=== PATIENT | male | born 1935 | race Caucasian/White ===

== ENCOUNTER 2017-11-11 12:15 | Emergency (ER) | payer OTHER, MEDICARE ==
[~2017-11-11] VITALS: Ht 177.8 cm; Wt 79.4 kg
[2017-11-11] MEDS ORDERED: AMLODIPINE BESYL5 M1 PO (13:17)
[2017-11-11] MEDS ORDERED: SOTALOL80 M1 PO (13:17)
[2017-11-11] MEDS ORDERED: PRADAXA150 M2 PO (13:17)
[2017-11-11] MEDS ORDERED: ATORVASTATIN CA20 M1 PO (13:17)
--- NOTE | 2017-11-11 13:46 | ED HAND/WRIST INJURY COMPLAINT ---
History of Present Illness General Chief Complaint: Hand or Wrist Injury Stated Complaint: RT HAND INFECTION Source: patient Exam Limitations: no limitations Vital Signs & Intake/Output Vital Signs & Intake/Output Vital Signs Date Time Temp Pulse Resp B/P B/P Pulse O2 O2 Flow FiO2 Mean Ox Delivery Rate 11/11 1505 97.0 70 15 140/71 99 Room Air Room Air 11/11 1344 96 Room Air 11/11 1221 96.8 76 18 144/78 98 Room Air Allergies Coded Allergies: No Known Drug Allergies (Intermediate, NONE 11/11/17) Reconcile Medications Amlodipine Besylate 5 MG TABLET 1 TAB PO DAILY BP (Reported) Atorvastatin Calcium 20 MG TABLET 1 TAB PO DAILY HEART (Reported) Cephalexin (Keflex) 500 MG CAPSULE 1 CAP PO TID CELLULITIS Dabigatran Etexilate Mesylat (Pradaxa) 150 MG CAPSULE 1 TAB PO BID BLOOD THINNER (Reported) Sotalol HCl (Sotalol) 80 MG TABLET 1 TAB PO BID HEART (Reported) Triage Note: C/O PAIN IN R WRIST AND TOP OF HAND X 3-4 DAYS, DENIES INJURY OR FALL. Triage Nurses Notes Reviewed? yes Duration: day(s): (3-4), constant, continues in ED Timing: single episode today Injury Environment: home Severity: mild, moderate Severity Numbers: 7 Pain/Injury Location: Right: Wrist. Method of Injury: unknown No Modifying Factors: none HPI: 82-year-old male past medical history of hypertension, atrial fibrillation presents for evaluation of pain in his right wrist. Patient states symptoms started 3 or 4 days ago and have been persistent. He denies any trauma or triggering event. The pain is located diffusely in the wrist and is worse with movement. He states that the pain is very mild when he is not moving and that he gets significant worse with flexion and extension and deviation. He states that several days prior to the onset of the pain he noticed a small scratch over the knuckles. He states that he is prone to infections and he thinks it may be the cause of the pain. No numbness tingling fever or spreading redness swelling or discharge. He is not taking any medicine for this. No other joint swelling or pain. (Jamie Thornton) Past History Travel History Traveled to [place] past 21 day No Medical History Any Pertinent Medical History? see below for history Cardiovascular: AFIB, hypertension Musculoskeletal: rheumatoid arthritis Surgical History Surgical History: non-contributory Psychosocial History What is your primary language Dominican Tobacco Use: Never used ETOH Use: occasional use Family History Hx Contributory? No (Jamie Thornton) Review of Systems Review of Systems Constitutional: Reports: no symptoms. EENTM: Reports: no symptoms. Respiratory: Reports: no symptoms. Cardiovascular: Reports: no symptoms. GI: Reports: no symptoms. Genitourinary: Reports: no symptoms. Musculoskeletal: Reports: joint pain, joint swelling, muscle pain, muscle stiffness. Skin: Reports: no symptoms. Neurological/Psychological: Reports: no symptoms. Hematologic/Endocrine: Reports: no symptoms. Immunologic/Allergic: Reports: no symptoms. All Other Systems: Reviewed and Negative (Jamie Thornton) Physical Exam Physical Exam General Appearance: well developed/nourished, no apparent distress, alert, awake Head: atraumatic, normal appearance Eyes: Bilateral: normal appearance, EOMI. Ears, Nose, Throat: hearing grossly normal Neck: normal inspection, full range of motion Cardiovascular/Respiratory: normal breath sounds, regular rate/rhythm, no respiratory distress Shoulder Left: normal range of motion, normal inspection Shoulder Right: normal range of motion, normal inspection Elbow Left: normal range of motion, normal inspection Elbow Right: normal range of motion, normal inspection Forearm Left: normal range of motion, normal inspection Forearm Right: normal range of motion, normal inspection Wrist Left: normal range of motion, normal inspection Wrist Right: normal range of motion (WITH PAIN ), normal inspection, THERE IS VERY MILD SOFT TISSUE SWELLING OF THE RIGHT WRIST. fULL RANGE OF MOTION OF THE RIGHT WRIST IS INTACT WITH PAIN DURING FLEXION AND EXTENSION AND BILATERAL DEVIATION. nO CREPITUS OR BRUISING. nO ERYTHEMA AND LYMPHATIC STREAKING OR DISCHARGE. performance tester STRENGTH 4 OUT OF 5. nO PAIN TO PALPATION OF THE PHALANGES METACARPALS OR CARPALS. nO SNUFFBOX TENDERNESS. cAP REFILL LESS THAN 2 SECONDS SENSORY SUPPLY INTACT Hand Left: normal inspection, normal range of motion Hand Right: normal inspection, normal range of motion, THERE IS A SUPERFICIAL LACERATION OVER THE DORSUM OF THE HAND NEAR THE THIRD mcp JOINT. nO STRANDING ERYTHEMA AND NO DISCHARGE AND TENDERNESS TO PALPATION NO FOCAL FLUCTUANT AREAS NO INDURATION Neurologic/Tendon: normal sensation, normal motor functions, normal tendon functions, responds to pain, no evidence tendon injury, no pulse deficit Skin: intact, normal color, warm/dry Lymphatic: no anterior cervical pancho (Brody CÁRDENAS,Jamie) Progress Differential Diagnosis: cellulitis, contusion, fracture, gout, septic arthritis, sprain, tenosynovitis Plan of Care: Orders Procedure Date/time Status XRY-WRIST COMPLETE-RIGHT 11/12 1315 Active Patient seen and evaluated. He is reporting pain in the right wrist. This pain is significant only worse with movement it gets much better with rest. Very mild swelling noted on exam. No erythema or focal fluctuant areas no lymphatic streaking. An x-ray will be obtained patient treated with Tylenol. X-rays negative for fracture. Patient is feeling significantly better after Tylenol. Jude wrap was applied. Advised rest ice elevation compression. Patient is concerned about infection. Reassurance given that there does not appear to be any signs of infection at this time. Patient was given a written prescription for cephalexin to hold onto and instructed to only take if he notices spreading redness worsening swelling worsening pain or fever. Make a follow-up with the primary care doctor for this coming week. Monitor symptoms closely return with any concerns. Case discussed with and he agrees. Diagnostic Imaging: Viewed by Me: Radiology Read. Discussed w/RAD: Radiology Read. Radiology Impression: PATIENT: REA GONZALEZ PRESENT AGE: 82 PATIENT ACCOUNT NO: [id number] : 37 LOCATION: [facility] ORDERING PHYSICIAN: Jamie CÁRDENAS SERVICE DATE: 11/11/17 EXAM TYPE: RAD - XRY- WRIST COMPLETE-RIGHT EXAMINATION: XR WRIST, RIGHT CLINICAL INFORMATION: Right wrist pain and swelling. No known trauma. COMPARISON: None TECHNIQUE: Four views of the right wrist. FINDINGS: Mild amorphous calcific density projecting distal to the ulna may represent vascular calcifications or chondrocalcinosis. 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 No fracture. Alignment is appropriate. IMPRESSION: No acute osseous findings. Mild first CMC and triscaphe osteoarthritis. Nonspecific calcification just distal to the ulna may represent chondrocalcinosis or vascular calcifications. DICTATED BY: Alec Rose MD DATE/TIME DICTATED:11/11/171437 FABRIC CUTTER:ELISE DATE/TIME TRANSCRIBED:11/11/171437 CONFIDENTIAL, DO NOT COPY WITHOUT APPROPRIATE AUTHORIZATION. <Electronically signed in Other Vendor System> SIGNED BY: Alec Rose MD 11/11/17 6027 (Jamie Thornton) Departure Departure Disposition: HOME OR SELF CARE Condition: Stable Clinical Impression Primary Impression: Wrist pain, right Referrals: Rocio BHATT,Antoine Rasmussen (PCP/Family) Additional Instructions: Rest, avoid excessive physical activity or lifting or bending. Continue Tylenol 1000 mg every 6 hours as needed for pain. Wear Jude wrap. Apply ice for 15-20 minutes every few hours. Monitor symptoms closely. If he notices spreading redness worsening swelling fever start antibiotics for full course. He should make a follow-up appointment with her primary care doctor for this week. Monitor symptoms return with any concerns. Departure Forms: Customer Survey General Discharge Information Prescriptions: Current Visit Scripts Cephalexin (Keflex) 1 CAP PO TID #30 CAP (Jamie Thornton) PA/SENIOR APPLICATIONS ENGINEER Co-Sign Statement Statement: ED Attending supervision documentation- x I saw and evaluated the patient. I have also reviewed all the pertinent lab results and diagnostic results. I agree with the findings and the plan of care as documented in the PA's/SENIOR APPLICATIONS ENGINEER's documentation. [] I have reviewed the ED Record and agree with the PA's/SENIOR APPLICATIONS ENGINEER's documentation. [] Additions or exceptions (if any) to the PAs/SENIOR APPLICATIONS ENGINEER's note and plan are summarized below: [] (Jacobo BHATT,Jacob)
--- NOTE | 2017-11-11 14:44 | RADIOLOGY REPORT ---
EXAMINATION: XR WRIST, RIGHT CLINICAL INFORMATION: Right wrist pain and swelling. No known trauma. COMPARISON: None TECHNIQUE: Four views of the right wrist. FINDINGS: Mild amorphous calcific density projecting distal to the ulna may represent vascular calcifications or chondrocalcinosis. 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 No fracture. Alignment is appropriate. IMPRESSION: No acute osseous findings. Mild first CMC and triscaphe osteoarthritis. Nonspecific calcification just distal to the ulna may represent chondrocalcinosis or vascular calcifications.
[2017-11-11] MEDS ORDERED: KEFLEX500 M1 PO (14:59)
[2017-11-11 15:05] VITALS: BP 140/71
== END 2017-11-11 15:05 ==
LOC: ERH 12:15
DX: M25.531 Pain in right wrist (principal)
CPT/HCPCS: 73110-RT